=== PATIENT | male | born 1955 | race African-American/Black ===

== ENCOUNTER 2016-04-05 13:54 | Observation (INO) ==
--- NOTE | 2016-04-05 14:41 | EKG Report ---
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
[2016-04-05] MEDS ORDERED: ASPIRIN 325 MG TABLET PO STA (14:50)
[2016-04-05] MEDS ORDERED: ENOXAPARIN 100 MG/ML SYRINGE SUBCUT STA (14:50)
[2016-04-05] MEDS ORDERED: NITROGLYCERIN 2% OINT 1 INCH/GM PACK TOP STA (15:05)
[2016-04-05] MEDS ORDERED: ASPIRIN 325 MG TABLET ONE (15:35)
[2016-04-05] MEDS ORDERED: niCARdipine 25 MG/10 ML VIAL IV ONE (15:35)
[2016-04-05] MEDS ORDERED: NITROGLYCERIN 2% OINT 1 INCH/GM PACK TOP ONE (15:35)
[2016-04-05] MEDS ORDERED: ENOXAPARIN 80 MG/0.8 ML SYRINGE SUBCUT ONE (15:35)
[2016-04-05 15:38] LABS: Albumin 3.7 G/DL (3.4-5.0); Bilirubin,Total 0.4 MG/DL (0.2-1.0); Calcium 8.4 MG/DL (8.5-10.1); Magnesium 2.6 MG/DL (1.8-2.4); Osmolality,Calculated 288.8 MOS/KG (273-304); Potassium 4.3 MMOL/L (3.5-5.1); Total Protein 6.9 G/DL (6.4-8.3)
--- NOTE | 2016-04-05 15:40 | XRay Report ---
XR chest 1V portable Indication: Chest pain Comparison: Chest x-ray dated December 16, 2014 Technique: Single frontal view of the chest Findings: Cardiomediastinal silhouette is stable in configuration. No focal consolidation, pleural effusion, or pneumothorax. Osseous and surrounding soft tissue structures demonstrate no acute abnormality. IMPRESSION: No acute cardiopulmonary process demonstrated. PROCEDURE INTERPRETED AT [facility] DEPARTMENT OF RADIOLOGY Final Report Signed by: Dr Jeremias Dodson
[2016-04-05] MEDS: niCARdipine INJ 25 MG in SODIUM CHLORIDE 0.9% 240 ML IV SCH ×2 (15:50→21:46)
[2016-04-05 16:10] LABS: Basophils % 0.9 % (0.0-0.8); Eosinophils # 0.2 10*3/uL (0.0-0.87); Eosinophils % 3.5 % (0.00-10.9); Hematocrit 39.7 VOL% (42.0-52.0); Hemoglobin 12.4 GM/DL (14.0-18.0); Lymphocytes # 2.4 10*3/uL (1.4-4.0); Lymphocytes % 55.4 % (21.2-54.2); Mean Corpuscular HGB Conc 31.2 GM/DL (32-36); Mean Corpuscular Hemoglobin 27 PG (27-34); Mean Corpuscular Volume 85.2 FL (87-102); Mean Platelet Volume 12.8 FL (9.6-12.0); Monocytes # 0.3 10*3/uL (0.11-0.8); Neutrophils # 1.4 10*3/uL (1.4-7.4); Neutrophils % 32.2 % (38.7-73.9); Platelet Count 170 10*3/uL (130-400); Red Blood Count 4.66 10*6/uL (3.8-5.5); Red Cell Distribution Width 13.8 % (9.3-17.3); White Blood Count 4.3 10*3/uL (4.5-13.71)
[2016-04-05 16:29] LABS: Apearance,Urine CLEAR (Clear); Bacteria,Urine Occasional /HPF (Few); Bilirubin,Urine Negative (Negative); Blood, Urine Negative (Negative); Glucose,Urine (UA) Negative (Negative); Ketones,Urine Negative (Negative); Mucus,Urine Occasional /LPF (Occasional); Nitrite,Urine Negative (Negative); Protein,Urine Negative; Urine Color Yellow (Yellow); Urine Specific Gravity 1.019 (1.001-1.035); Urine Urobilinogen < 2.0 EU/DL (0.2-1.0); WBC,Urine <1 /HPF (0-6)
[2016-04-05] MEDS ORDERED: MAGNESIUM SULF RIDER 2 GM in PREMIX 1 EACH IV PRN ×2 (16:49→17:58)
[2016-04-05] MEDS ORDERED: MAGNESIUM SULF RIDER 4 GM in PREMIX 1 EACH IV PRN ×2 (16:49→17:58)
[2016-04-05 16:50] LABS: Eosinophils 2 % (0-10); Lymphocytes 63 % (20-55); Myelocytes 2 %; Platelet Estimate Adequate; Segmented Neutrophils 30 % (50-85); Total Cells Counted 100
--- NOTE | 2016-04-05 17:48 | Emergency Department Note ---
Harpreet Daniels Meredith, am scribing for, and in the presence of, Parker Waters MD 14:44. Evelin Daniels Phillip K, MD, personally performed the services described in this documentation, ascribed by Diane Mullins in my presence, and it is both accurate and complete [id number] . Arrival - Arrival Chief Complaint: Chest Pain Stated Complaint: HIGH BLOOD PRESSURE ED Nursing Triage Note: reports pain in left side of chest that started about 0845 this am. was seen at [facility] and told to come here to see dr jackson. denies n/v diaphoresis or sob Mode of Arrival: Ambulatory Limitations: No Limitations Source: Patient, Family, Old Records Reviewed, RN Notes Reviewed - History of Present Illness HPI Narrative: Pt is a 60 y/o black male reporting to the ED with c/o non-radiating left-sided chest pressure which onset at approximately 0845 this morning while at rest. He was seen at the [facility] and was told to come here to see Dr. Jackson. Pt confirms some blurred vision but denies any associated nausea, vomiting, diaphoresis, shortness of breath, cough, or fever. At the time of triage his blood pressure was 172/90 and his heart rate was 41 bpm. Family member states his blood pressure has been elevated for the past 6 days. Pt has a treadmill last year per Dr. Jackson which was normal. He has a history of HTN. Pt is a current everyday smoker. Onset (ago): hour(s) Quality: other (pressure) Allergies/Adverse Reactions: Allergies Allergy/AdvReac Type Severity Reaction Status Date / Time No Known Drug Allergies Allergy Verified 12/16/14 11:14 Home Medications: Home Medications Medication Instructions Recorded Confirmed Type Losartan [Cozaar] 50 mg PO BID #60 tablet 12/17/14 04/05/16 Rx Review of System - Review of System 12 point system: reviewed and no additional remarkable complaints except as stated - Review of System Constitutional: Present: as per HPI. Absent: diaphoresis, fever Respiratory: Present: as per HPI, other (denies SOB). Absent: cough Cardiovascular: Present: as per HPI, chest pain, other (hypertension and bradycardia) Gastrointestinal: Present: as per HPI. Absent: nausea, vomiting Medical,Surgical,& Family Hx - Medical History Cardio: History of: Hypertension - Surgical History Orthopedic Surgeries: Surgical HX of;: Orthopedic Surgery (ORIF of both legs) - Family History Family History: Reports;: Family Cancer, Family Heart Disease, Family Hypertension, Family Stroke Denies;: Family Psychiatric Problems - Social History Smoking Status: Current every day smoker Exam Vital Signs: Vital Signs Temperature 97.1 F L 04/05/16 15:22 Pulse Rate 41 L 04/05/16 15:22 Respiratory Rate 19 04/05/16 15:22 Blood Pressure 172/90 04/05/16 15:22 O2 Sat by Pulse Oximetry 100 04/05/16 15:00 - General General appearance: alert, in no apparent distress - Head Head exam: Present: atraumatic, normocephalic - Eye Eye exam: Present: normal appearance, PERRL, EOMI - ENT ENT exam: Present: mucous membranes moist, normal external ear exam - Neck Neck exam: Present: full ROM, trachea midline. Absent: tenderness, meningismus , lymphadenopathy, thyromegaly - Chest Chest inspection: Present: symmetric chest wall rise. Absent: tenderness, rash - Respiratory Respiratory exam: Present: normal lung sounds bilaterally. Absent: respiratory distress - Cardiovascular Cardiovascular exam: Present: normal rhythm, bradycardia. Absent: murmur, rubs , gallop - Abdominal Exam Abdominal exam: Present: soft, normal bowel sounds. Absent: distention, tenderness - Extremities Exam Extremities exam: Present: full ROM, normal capillary refill. Absent: tenderness, pedal edema, calf tenderness - Back Exam Back exam: Present: full ROM. Absent: tenderness - Neurological Exam Neurological exam: Present: alert, oriented X3, CN II-XII intact. Absent: motor sensory deficit - Psychiatric Psychiatric exam: Present: normal affect, normal mood - Skin Skin exam: Present: warm, dry, intact, normal color Results - Labs CBC & BMP: 04/05/16 14:41 04/05/16 14:41 Lab Results: I have reviewed the patients labs Labs: Laboratory Tests 04/05/16 04/05/16 14:41 14:41 Sodium 144 Potassium 4.3 Chloride 110 H Carbon Dioxide 28 BUN 21 H Creatinine 1.40 H Calcium 8.4 L Magnesium 2.6 H ALT 14 L Troponin I 0.047 H Laboratory Tests 04/05/16 14:41 WBC 4.3 L RBC 4.66 Hgb 12.4 L Hct 39.7 L MCV 85.2 L MCHC 31.2 L Plt Count 170 MPV 12.8 H Neut % (Auto) 32.2 L Lymph % (Auto) 55.4 H Baso % (Auto) 0.9 H Laboratory Tests 04/05/16 14:41 Urine pH 6.0 Ur Specific [place] 1.019 Urine Urobilinogen < 2.0 H Urine WBC <1 Urine Bacteria Occasional Urine Mucus Occasional - EKG EKG results: interpreted by ERMD (sinus bradycardia with inferior ST-T changes) - Diagnostic Findings Procedure: Chest x-ray: report reviewed by me (No acute cardiopulmonary process demonstrated. ) Disposition Clinical Impression: Chest pain, Hypertensive crisis, Bradycardia Case discussed with: patient Disposition: Still a Patient Condition: Guarded
[2016-04-05] MEDS ORDERED: DOCUSATE SODIUM 100 MG CAPSULE PO PRN (17:58)
[2016-04-05] MEDS ORDERED: ONDANSETRON 4 MG/2 ML VIAL IV PRN (17:58)
[2016-04-05] MEDS ORDERED: ACETAMINOPHEN 325 MG TABLET PO PRN (17:58)
[2016-04-05] MEDS ORDERED: ENOXAPARIN 40 MG/0.4 ML SYRINGE SUBCUT SCH (18:00)
[2016-04-05 18:24] LABS: Barbiturates Screen,Urine Negative (Negative); Benzodiazepines Screen,Urine Negative (Negative); Cannabinoid Screen,Urine Positive (Negative); Opiate Screen,Urine Negative (Negative); Phencyclidine Screen,Urine Negative (Negative)
[2016-04-05] MEDS ORDERED: FUROSEMIDE 40 MG/4 ML VIAL IV ONE (18:27)
--- NOTE | 2016-04-05 18:27 | Cardiology History & Physical ---
Assessment and Plan (1) Hypertensive emergency Status: Acute Assessment and plan: 60-year-old black male, history of hypertension, presenting with hypertensive emergency, NSTEMI, likely due to demand ischemia. Sinus bradycardia, not symptomatic. He is feeling better, with medical management. -Continue aspirin, add Crestor 20 mg daily at bedtime. -Echo in a.m. -Trend troponins. So far, this seems to be a type II ischemic event and can pursue ischemic evaluation, when he is stable. -Keep on telemetry. -Resume Cozaar. Follow creatinine -Cathetered beta jennifer due to baseline bradycardia. -PPI Current Visit: Yes (2) Chest pain Status: Acute Current Visit: Yes (3) Bradycardia Status: Acute Current Visit: Yes History of Present Illness Chief complaint: HTN History of present illness: Mr. Fisher is a 60 year old BM, followed by Dr. Jackson. He has a history of hypertension. Today, while going to work, he developed retroocular pressure, then headache and chest pain, which lasted for approximately half an hour. This was mild. He came to the emergency room for evaluation. The blood pressure was 220, he was started on Cardizem drip, which provided good blood pressure relief. He is currently pain-free and he is feeling normal. He denies any lower extremity swelling, orthopnea or nocturnal symptoms. He also noticed swelling of his left knee recently, history of remote orthopedic surgery. There is no history of gout. He is compliant with his medications. There were no significant ischemic changes on the EKG. Chest x-ray was unremarkable. Initial troponin was borderline. He was in sinus bradycardia at 55 bpm. Mild CKD, creatinine at baseline. 1.5. Home Medications Medication Instructions Recorded Confirmed Type Losartan [Cozaar] 50 mg PO BID #60 tablet 12/17/14 04/05/16 Rx Allergies Allergy/AdvReac Type Severity Reaction Status Date / Time No Known Drug Allergies Allergy Verified 12/16/14 11:14 12 point system: reviewed and no additional remarkable complaints except as stated Medical,Surgical,& Family Hx - Medical History Cardio: History of: Hypertension - Surgical History Orthopedic Surgeries: Surgical HX of;: Orthopedic Surgery (ORIF of both legs) - Family History Family History: Reports;: Family Cancer, Family Heart Disease, Family Hypertension, Family Stroke Denies;: Family Psychiatric Problems - Social History Smoking Status: Current every day smoker Cardiology Physical Exam - Constitutional Vitals: Vital Signs Temp Pulse Resp BP Pulse Ox 97.1 F L 49 L 13 131/81 100 04/05/16 15:22 04/05/16 18:02 04/05/16 18:02 04/05/16 18:02 04/05/16 18:02 General appearance: normal weight - Head Head exam: Present: normal inspection - Eye Eye exam: Absent: conjunctival injection Pupils: Absent: constricted - ENT ENT exam: Present: normal exam - Neck Neck exam: Present: normal inspection. Absent: thyromegaly - Respiratory Respiratory exam: Present: decreased breath sounds - Cardiovascular Cardiovascular exam: Present: bradycardia, systolic murmur - GI/Abdominal GI/Abdominal exam: Present: normal bowel sounds - Extremities Exam Extremities exam: Present: normal inspection, normal capillary refill. Absent: edema - Back Exam Back exam: Present: normal inspection - Neurological Exam Neurological exam: Present: alert, oriented X3 - Psychiatric Psychiatric exam: Present: normal affect, normal mood - Skin Skin exam: Present: normal color, warm. Absent: cyanosis Result/EKG - Labs CBC & BMP: 04/05/16 14:41 04/05/16 14:41 Lab Results: I have reviewed the past 24 hour labs - EKG EKG results: interpreted by me
[2016-04-05] MEDS ORDERED: ROSUVASTATIN 20 MG TABLET PO SCH (21:00)
[2016-04-05] MEDS: LOSARTAN 50 MG TABLET PO SCH (21:38)
[2016-04-06 04:17] LABS: Basophils # 0.1 10*3/uL (0.0-0.2); Basophils % 1.1 % (0.0-0.8); Eosinophils # 0.1 10*3/uL (0.0-0.87); Hematocrit 40.4 VOL% (42.0-52.0); Immature Granulocytes % 0.2 %; Immature Granulocytes Absolute 0.01 #; Lymphocytes # 2.3 10*3/uL (1.4-4.0); Lymphocytes % 48.3 % (21.2-54.2); Mean Corpuscular HGB Conc 32.2 GM/DL (32-36); Mean Corpuscular Hemoglobin 28 PG (27-34); Mean Corpuscular Volume 85.6 FL (87-102); Mean Platelet Volume 12.3 FL (9.6-12.0); Monocytes # 0.6 10*3/uL (0.11-0.8); Monocytes % 13.3 % (1.7-12.7); Neutrophils # 1.6 10*3/uL (1.4-7.4); Neutrophils % 34.1 % (38.7-73.9); Platelet Count 178 10*3/uL (130-400); Red Blood Count 4.72 10*6/uL (3.8-5.5); Red Cell Distribution Width 13.5 % (9.3-17.3); White Blood Count 4.7 10*3/uL (4.5-13.71)
[2016-04-06 05:02] LABS: Albumin 3.7 G/DL (3.4-5.0); Bilirubin,Total 0.8 MG/DL (0.2-1.0); Calcium 8.5 MG/DL (8.5-10.1); Magnesium 2.7 MG/DL (1.8-2.4); Osmolality,Calculated 290.7 MOS/KG (273-304); Risk Ratio 3.04; Thyroid Stimulating Hormone 4.16 uIU/ml (0.358-3.74); Total Protein 6.8 G/DL (6.4-8.3); VLDL CHOLESTEROL 17.8 MG/DL
[2016-04-06 05:32] LABS: Hypochromasia Slight
[2016-04-06 05:33] LABS: Platelet Estimate Adequate
--- NOTE | 2016-04-06 06:05 | EKG Report ---
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 : 1955 Requested by: Parker Bain Order Number: [id number] Reading MD: NEIL ALDRICH Intervals [place] Rate: 50 P: 251 [place]: 118 QRS: -39 QRSD: 97 T: -60 QT: 446 QTc: 418 Interpretive Statements JUNCTIONAL BRADYCARDIA MARKED LEFT AXIS DEVIATION POSSIBLE RIGHT VENTRICULAR CONDUCTION DELAY MINIMAL VOLTAGE CRITERIA FOR LVH, CONSIDER NORMAL VARIANT ST DEVIATION AND MODERATE T-WAVE ABNORMALITY, CONSIDER LATERAL ISCHEMIA ST DEVIATION AND MODERATE T-WAVE ABNORMALITY, CONSIDER INFERIOR ISCHEMIA Electronically Signed On 04-06-16 13:27:34 SQL DATABASE ADMINISTRATOR by NEIL ALDRICH [email or web address]
--- NOTE | 2016-04-06 07:32 | EKG Report ---
Stationary ECG Study [facility] Test Date: 04/06/2016 7:30:37 AM Pat Name: NAILA LEMA Department: Room: 115 Gender: M Bell Clerk: YO : 1955 Requested by: Pepe Rocha Order Number: [id number] Reading MD: NEIL ALDRICH Intervals [place] Rate: 43 P: 999 AR: 0 QRS: 73 QRSD: 93 T: -56 QT: 459 QTc: 405 Interpretive Statements ATRIAL FIBRILLATION WITH SLOW VENTRICULAR RESPONSE POSSIBLE RIGHT VENTRICULAR CONDUCTION DELAY VOLTAGE CRITERIA FOR LVH POSSIBLE SEPTAL MYOCARDIAL INFARCTION, PROBABLY OLD MODERATE T-WAVE ABNORMALITY, CONSIDER INFERIOR ISCHEMIA Electronically Signed On 04-06-16 13:31:27 PLASTICATOR by NEIL ALDRICH [email or web address]
[2016-04-06] MEDS ORDERED: PANTOPRAZOLE 40 MG TABLET PO SCH (09:00)
[2016-04-06] MEDS ORDERED: ASPIRIN EC 81 MG TABLET PO SCH (09:00)
[2016-04-06] MEDS: LOSARTAN 50 MG TABLET PO SCH (09:35)
[2016-04-06 15:46] VITALS: BP 188/88
[2016-04-06] MEDS ORDERED: amLODIPine 5 MG TABLET PO SCH ×3 (16:30→18:06)
--- NOTE | 2016-04-06 17:22 | Discharge Summary ---
<Dilan Cortesnie E - Last Filed: 04/06/16 17:16> Hospital Course - Hospital Course Hospital Course: This is an incomplete DC summary draft - please complete at discharge. Mr. Fisher is a 60 year old BM, followed by Dr. Jackson. He has a history of hypertension. Patient presented to the emergency department after experiencing retro-ocular pressure, headache and chest pain. All of these symptoms lasted approximately half an hour. Upon admission to the ER his systolic blood pressure was noted be to 220 and he was started on Cardizem drip appropriately. This provided good relief. With control of his blood pressure is chest pain was relieved. There were no ischemic changes on his EKG. His troponin was marginal at 0.047. It did not trend up and in fact stayed 0.046. And his cardiac biomarkers were negative. Mild CKD, creatinine at baseline. 1.5 and remained stable through hospital stay. Specialty Discharge - Follow Up or Referrals Discharge Plan - Discharge Medications New Aspirin EC Tab 81 mg PO DAILY #90 tablet Furosemide Tab [Lasix Tab] 20 mg PO DAILY #90 tablet Rosuvastatin [Crestor] 20 mg PO BEDTIME #90 tablet amLODIPine [Norvasc] 5 mg PO DAILY #90 tablet Continue Losartan [Cozaar] 50 mg PO BID #60 tablet - Follow Up or Referral - Forms/Instructions Instructions: Myocardial Infarction (GEN), Cigarette Smoking and Your Health ( GEN), Chronic Hypertension (GEN) Exam - Constitutional Vitals: Period Temp Pulse Resp BP Sys/Sherman Pulse Ox Last 24 Hr 97.2 F-98.1 F 38-60 9-23 98-188/59-97 Discharge Results Procedures and tests throughout hospitalization: Pending Orders 04/06/16 08:18 MRSA Surveillence, Inf Control Routine Labs on day of discharge: Labs from last 24 hours 04/06/16 04/06/16 04/06/16 03:39 03:39 03:39 WBC RBC Hgb Hct MCV MCH MCHC RDW Plt Count MPV Neut % (Auto) Lymph % (Auto) [place] % (Auto) Eos % (Auto) Baso % (Auto) Neut # (Auto) Lymph # (Auto) [place] # (Auto) Eos # (Auto) Baso # (Auto) Immature Gran % Nucleated RBC % Immature Gran # Nucleated RBCs # Platelet Estimate Hypochromasia Sodium 145 Potassium 4.0 Chloride 107 Carbon Dioxide 31 Anion Gap 11.0 BUN 22 H Creatinine 1.40 H GFR Calculation 72 BUN/Creatinine Ratio 15.00 Glucose 99 Calculated Osmolality 290.7 Calcium 8.5 Magnesium 2.7 H Total Bilirubin 0.80 AST 10 ALT 13 L Alkaline Phosphatase 84 Troponin I B-Natriuretic Peptide 68 Total Protein 6.8 Albumin 3.7 Globulin 3.1 Albumin/Globulin Ratio 1.1 Triglycerides 89 Cholesterol 173 LDL Cholesterol 94.0 VLDL Cholesterol 17.8 HDL Cholesterol 57 Heart Disease Risk Ratio 3.04 Free T4 1.13 TSH 3rd Generation 4.160 H 04/06/16 04/05/16 04/05/16 03:39 22:06 18:39 WBC 4.7 RBC 4.72 Hgb 13.0 L Hct 40.4 L MCV 85.6 L MCH 28 MCHC 32.2 RDW 13.5 Plt Count 178 MPV 12.3 H Neut % (Auto) 34.1 L Lymph % (Auto) 48.3 [place] % (Auto) 13.3 H Eos % (Auto) 3.0 Baso % (Auto) 1.1 H Neut # (Auto) 1.6 Lymph # (Auto) 2.3 [place] # (Auto) 0.6 Eos # (Auto) 0.1 Baso # (Auto) 0.1 Immature Gran % 0.2 Nucleated RBC % 0.0 Immature Gran # 0.01 Nucleated RBCs # 0.00 Platelet Estimate Adequate Hypochromasia Slight Sodium Potassium Chloride Carbon Dioxide Anion Gap BUN Creatinine GFR Calculation BUN/Creatinine Ratio Glucose Calculated Osmolality Calcium Magnesium Total Bilirubin AST ALT Alkaline Phosphatase Troponin I 0.046 H 0.046 H B-Natriuretic Peptide Total Protein Albumin Globulin Albumin/Globulin Ratio Triglycerides Cholesterol LDL Cholesterol VLDL Cholesterol HDL Cholesterol Heart Disease Risk Ratio Free T4 TSH 3rd Generation DS: Provider Date of admission: 04/05/16 16:47 Primary care physician: . No PCP Attending physician on admission: Pepe Rocha MD Consults: 04/05/16 16:52 Consult to Pharmacy [CONS] Routine Reason for Pharmacy Consult: Adjust Meds Renal Funct 04/05/16 17:58 Consult to Cardiac Rehabilitation [CONS] Routine Reason for Cardiac Rehabilitation: Risk Factor Modification Discharging clinician: Lisa Cortes NP <Pepe Rocha - Last Filed: 04/06/16 18:13> Hospital Course - Hospital Course Hospital Course: 60y BM, followed by dr. Jackson. He was admitted with HTN emergeny, demand ischemia. Symptoms resolved with cardene drip. Remained bradycardiac throughout the hospital stay, SR 30-40 bpm. Not symptomatic. Echo - severe LVH with norm pulm pressure. -HTN heart disease, LVH- cont Cozaar, added amlodipine, lasix -demand ischemia - ASA, statin. will not use BB due to baseline bradycardia -yanet - not symptomatic so far -Secondary HTN screen: he denies DELIA symptoms. TSH borderline high, with normal FT4. -CKD - mild, stable. Cont ARB -FU with dr. Jackson in 2 weeks with BMP/Mg Diagnosis - Discharge Diagnosis (1) Hypertensive emergency Status: Acute (2) Chest pain Status: Acute (3) Bradycardia Status: Acute DS: Provider Expected date of discharge: 04/06/16
--- NOTE | 2016-04-06 17:55 | ECHO Report ---
Hunter Fisher Exam Date: 04/06/2016 08:54 Referring Physician: Technologist: Kaylie White RDCS Age: 60 Ht (in): Wt (lb): Gender: M Exam Location: [facility] Echo Indications: Essential (primary) hypertension, Chest pain, unspecified, Bradycardia, unspecified, Cardiac murmur, unspecified, Non-ST elevation (NSTEMI) myocardial infarction, Nicotine dependence, unspecified, uncomplicated BP: / HR: Rhythm: Sinus Technical Quality: IMPRESSIONS Normal left ventricular cavity size. Severe concentric hypertrophy (1.7 cm). Left ventricular ejection fraction is estimated at 60 %. No outflow tract obstruction. Moderate biatrial enlargement. MEASUREMENTS (Male / Female) Normal Values 2D ECHO LV Diastolic Diameter PLAX 4.4 cm 4.2 - 5.9 / 3.9 - 5.3 cm LV Systolic Diameter PLAX 2.5 cm LV Fractional Shortening PLAX 44.2 % IVS Diastolic Thickness 1.7 cm 0.6 - 1.0 / 0.6 - 0.9 cm LVPW Diastolic Thickness 1.8 cm 0.6 - 1.0 / 0.6 - 0.9 cm RV Internal Dim ED PLAX 2.3 cm Aortic Root Diameter 4.0 cm LA Systolic Diameter LX 4.2 cm 3.0 - 4.0 / 2.7 - 3.8 cm DOPPLER TR Peak Velocity 239.0 cm/s TR Peak Gradient 22.8 mmHg FINDINGS Left Ventricle Normal left ventricular cavity size. Severe conventric hypertrophy (1.7 cm). Left ventricular ejection fraction is estimated at 60 %. No outflow tract obstruction. Insufficient data to estimate diastolic function. Right Ventricle The right ventricle is normal in size and function. Right Atrium The right atrium is moderetely enlarged. Left Atrium The left atrium is moderately enlarged. Mitral Valve Morphologically normal mitral valve. Trace mitral valve regurgitation. Aortic Valve Morphologically normal aortic valve without significant sclerosis or stenosis. There is no aortic regurgitation. Tricuspid Valve Morphologically normal tricuspid valve. Mild tricuspid valve regurgitation. Tricuspid regurgitation velocities suggest a PAP of 23 mmHg + Ra pressure. Pulmonic Valve Morphologically normal pulmonic valve. Trace pulmonary valve regurgitation. Pericardium Normal pericardium without effusion. Aorta Normal ascending aorta dimension. Pepe Rocha (Electronically Signed) Final Date: 06 April 2016 17:54
[2016-04-06] MEDS ORDERED: ENOXAPARIN 40 MG/0.4 ML SYRINGE SUBCUT SCH (18:00)
[2016-04-07] MEDS ORDERED: FUROSEMIDE 20 MG TABLET PO SCH (09:00)
== END 2016-04-06 19:43 | disposition home or self-care (01) ==
LOC: N.ED 13:54 → N.EDINP 13:54 → N.ICU 17:59 → N.TELES 04-06 14:02
PROVIDERS: ADMIT Internal Medicine Clinical Cardiac Electrophysiology; ATTEND Internal Medicine Clinical Cardiac Electrophysiology

== ENCOUNTER 2022-05-15 14:04 | Inpatient (IN) ==
[2022-05-15] MEDS ORDERED: DIPH/TET/ACEL PERT BOOSTER VACCINE 0.5 ML VIAL IM ONE (17:56)
[2022-05-15 18:54] LABS: Basophils % 0.3 % (0.0-0.8); Eosinophils % 0.2 % (0.00-10.9); Hematocrit 46.8 VOL% (42.0-52.0); Hemoglobin 14.9 GM/DL (14.0-18.0); Immature Granulocytes % 0.4 %; Immature Granulocytes Absolute 0.05 #; Lymphocytes # 1.7 10*3/uL (1.4-4.0); Lymphocytes % 13.9 % (21.2-54.2); Mean Corpuscular HGB Conc 31.8 GM/DL (32-36); Mean Corpuscular Volume 86.2 FL (87-102); Mean Platelet Volume 10.9 FL (9.6-12.0); Monocytes # 1.2 10*3/uL (0.11-0.8); Monocytes % 10.1 % (1.7-12.7); Neutrophils % 75.1 % (38.7-73.9); Platelet Count 229 T/CUMM (130-400); Red Blood Count 5.43 MC/CUMM (3.8-5.5); Red Cell Distribution Width 15.4 % (9.3-17.3); White Blood Count 12.11 T/CUMM (4-12)
[2022-05-15 19:17] LABS: Calcium 9.4 MG/DL (8.5-10.1); Osmolality,Calculated 286.4 MOS/KG (273-304); Potassium 4.1 MMOL/L (3.5-5.1)
[2022-05-15 19:53] LABS: Platelet Estimate Normal
[2022-05-15] MEDS: SODIUM CHLORIDE 0.9% 1,000 ML IV SCH (20:21)
[2022-05-15] MEDS ORDERED: ENOXAPARIN 40 MG/0.4 ML SYRINGE SUBCUT SCH (21:00)
[2022-05-15] MEDS: PIPERACILLIN/TAZOBACTAM 3,375 MG in SODIUM CHLORIDE 0.9% 100 ML IV SCH (21:14)
[2022-05-15] MEDS ORDERED: hydrALAZINE 20 MG/1 ML VIAL IV PRN (21:42)
[2022-05-15] MEDS ORDERED: MORPHINE 2 MG/1 ML SYRINGE IV PRN (21:42)
[2022-05-15] MEDS ORDERED: DILTIAZEM 50 MG/10 ML VIAL IV STA (22:01)
[2022-05-15] MEDS ORDERED: DILTIAZEM 100 MG VIAL.ADD IV ONE (22:02)
[2022-05-15] MEDS ORDERED: DILTIAZEM 25 MG/5 ML VIAL IV ONE (22:03)
[2022-05-15] MEDS ORDERED: LABETALOL 20 MG/4 ML SYRINGE IV PRN (22:15)
[2022-05-15] MEDS ORDERED: DILTIAZEM INJ 100 MG in SODIUM CHLORIDE 0.9% 100 ML IV SCH (22:30)
[2022-05-16] MEDS ORDERED: MORPHINE 2 MG/1 ML SYRINGE ONE (02:57)
[2022-05-16 04:58] LABS: Basophils # 0.1 10*3/uL (0.0-0.2); Basophils % 0.5 % (0.0-0.8); Eosinophils # 0.1 10*3/uL (0.0-0.87); Eosinophils % 0.7 % (0.00-10.9); Hematocrit 40.5 VOL% (42.0-52.0); Hemoglobin 13.5 GM/DL (14.0-18.0); Immature Granulocytes % 0.3 %; Immature Granulocytes Absolute 0.03 #; Lymphocytes # 2.2 10*3/uL (1.4-4.0); Lymphocytes % 20.6 % (21.2-54.2); Mean Corpuscular HGB Conc 33.3 GM/DL (32-36); Mean Corpuscular Volume 85.8 FL (87-102); Mean Platelet Volume 11.3 FL (9.6-12.0); Monocytes # 1.2 10*3/uL (0.11-0.8); Monocytes % 11.3 % (1.7-12.7); Neutrophils % 66.6 % (38.7-73.9); Platelet Count 198 T/CUMM (130-400); Red Blood Count 4.72 MC/CUMM (3.8-5.5); Red Cell Distribution Width 15.1 % (9.3-17.3); White Blood Count 10.78 T/CUMM (4-12)
[2022-05-16 05:21] LABS: Albumin 2.7 G/DL (3.4-5.0); Bilirubin,Total 0.8 MG/DL (0.20-1.00); Calcium 8.8 MG/DL (8.5-10.1); Osmolality,Calculated 282.5 MOS/KG (273-304); Potassium 3.5 MMOL/L (3.5-5.1); Total Protein 7.2 G/DL (6.4-8.2)
[2022-05-16] MEDS: PIPERACILLIN/TAZOBACTAM 3,375 MG in SODIUM CHLORIDE 0.9% 100 ML IV SCH ×3 (05:25→21:13)
[2022-05-16] MEDS: SODIUM CHLORIDE 0.9% 1,000 ML IV SCH (06:27)
[2022-05-16] MEDS: ASPIRIN EC 81 MG TABLET PO SCH (08:44)
[2022-05-16 09:30] LABS: % Iron Saturation 13.6 % (18-50)
[2022-05-16 09:32] LABS: 25 Hydroxy Vitamin D Total 13.3 NG/ML (30-100); Folate 10.88 NG/ML (5.38-24.0)
[2022-05-16] MEDS ORDERED: POTASSIUM CHLORIDE 20 MEQ TABLET PO ONE (10:43)
[2022-05-16] MEDS ORDERED: FAMOTIDINE 20 MG/2 ML VIAL IV ONE (11:10)
[2022-05-16] MEDS ORDERED: IPRATROPIUM 500 MCG/2.5 ML NEB RESP TX ONE (11:10)
[2022-05-16] MEDS: amLODIPine 10 MG TABLET PO SCH (11:27)
[2022-05-16] MEDS: METOPROLOL TARTRATE 25 MG TABLET PO SCH ×2 (11:27→21:12)
[2022-05-16] MEDS ORDERED: BUPIVACAINE 0.5% 50 ML VIAL ONE ×2 (12:41→14:26)
[2022-05-16] MEDS ORDERED: LACTATED RINGERS 1,000 ML IV SCH (13:00)
[2022-05-16] MEDS ORDERED: propofoL 200 MG/20 ML VIAL IV ONE (13:49)
[2022-05-16] MEDS ORDERED: LIDOCAINE 2% 5 ML VIAL ONE (13:49)
[2022-05-16] MEDS ORDERED: fentaNYL 100 MCG/2 ML VIAL ONE (13:49)
[2022-05-16] MEDS ORDERED: MIDAZOLAM 2 MG/2 ML VIAL ONE (13:52)
[2022-05-16 13:55] LABS: Barbiturates Screen,Urine Negative (Negative); Benzodiazepines Screen,Urine Negative (Negative); Cannabinoid Screen,Urine Positive (Negative); Opiate Screen,Urine Positive (Negative); Phencyclidine Screen,Urine Negative (Negative)
[2022-05-16] MEDS ORDERED: SEVOFLURANE 1 UNIT/15 MINUTE INH ONE (15:20)
[2022-05-16] MEDS ORDERED: PHENYLEPHRINE 1 MG/10 ML SYRINGE IV ONE (15:20)
[2022-05-16] MEDS: LACTATED RINGERS 1,000 ML IV SCH (16:00)
[2022-05-16] MEDS: FERROUS SULFATE 325 MG TABLET PO SCH (21:12)
[2022-05-17] MEDS: LACTATED RINGERS 1,000 ML IV SCH (01:55)
[2022-05-17 04:18] LABS: Basophils % 0.4 % (0.0-0.8); Eosinophils # 0.1 10*3/uL (0.0-0.87); Eosinophils % 0.7 % (0.00-10.9); Hematocrit 35.6 VOL% (42.0-52.0); Hemoglobin 11.9 GM/DL (14.0-18.0); Immature Granulocytes % 0.2 %; Immature Granulocytes Absolute 0.02 #; Lymphocytes # 1.8 10*3/uL (1.4-4.0); Lymphocytes % 22.5 % (21.2-54.2); Mean Corpuscular HGB Conc 33.4 GM/DL (32-36); Mean Platelet Volume 11.1 FL (9.6-12.0); Monocytes # 1.1 10*3/uL (0.11-0.8); Monocytes % 13.5 % (1.7-12.7); Neutrophils % 62.7 % (38.7-73.9); Platelet Count 174 T/CUMM (130-400); Red Blood Count 4.14 MC/CUMM (3.8-5.5); Red Cell Distribution Width 14.9 % (9.3-17.3); White Blood Count 8.12 T/CUMM (4-12)
[2022-05-17 04:44] LABS: Calcium 8.1 MG/DL (8.5-10.1); Osmolality,Calculated 279.5 MOS/KG (273-304); Potassium 3.8 MMOL/L (3.5-5.1)
[2022-05-17 04:47] LABS: Risk Ratio 2.93; VLDL Cholesterol 14.8 MG/DL
[2022-05-17] MEDS: PIPERACILLIN/TAZOBACTAM 3,375 MG in SODIUM CHLORIDE 0.9% 100 ML IV SCH ×3 (05:39→20:32)
[2022-05-17] MEDS ORDERED: POTASSIUM CHLORIDE 20 MEQ TABLET PO ONE (07:28)
[2022-05-17] MEDS: amLODIPine 10 MG TABLET PO SCH (08:29)
[2022-05-17] MEDS: ENOXAPARIN 80 MG/0.8 ML SYRINGE SUBCUT SCH ×2 (08:29→20:34)
[2022-05-17] MEDS: CHOLECALCIFEROL 5,000 UNIT TABLET PO SCH (08:29)
[2022-05-17] MEDS: FERROUS SULFATE 325 MG TABLET PO SCH ×2 (08:29→20:34)
[2022-05-17] MEDS: ASPIRIN EC 81 MG TABLET PO SCH (08:29)
[2022-05-17] MEDS ORDERED: CLOPIDOGREL 75 MG TABLET PO SCH (09:00)
[2022-05-17] MEDS ORDERED: METOPROLOL TARTRATE 50 MG TABLET PO SCH (09:00)
[2022-05-17] MEDS: VANCOMYCIN INJ 1,000 MG in SODIUM CHLORIDE 0.9% 250 ML IV SCH (14:02)
[2022-05-18] MEDS: VANCOMYCIN INJ 1,000 MG in SODIUM CHLORIDE 0.9% 250 ML IV SCH ×2 (02:17→14:05)
[2022-05-18 04:17] LABS: Basophils % 0.7 % (0.0-0.8); Eosinophils # 0.2 10*3/uL (0.0-0.87); Eosinophils % 2.8 % (0.00-10.9); Hematocrit 35.4 VOL% (42.0-52.0); Hemoglobin 11.6 GM/DL (14.0-18.0); Immature Granulocytes % 0.3 %; Immature Granulocytes Absolute 0.02 #; Lymphocytes % 34.6 % (21.2-54.2); Mean Corpuscular HGB Conc 32.8 GM/DL (32-36); Mean Corpuscular Volume 86.3 FL (87-102); Mean Platelet Volume 11.3 FL (9.6-12.0); Monocytes # 0.7 10*3/uL (0.11-0.8); Monocytes % 12.6 % (1.7-12.7); Platelet Count 175 T/CUMM (130-400); Red Cell Distribution Width 14.7 % (9.3-17.3); White Blood Count 5.81 T/CUMM (4-12)
[2022-05-18] MEDS: PIPERACILLIN/TAZOBACTAM 3,375 MG in SODIUM CHLORIDE 0.9% 100 ML IV SCH ×3 (04:18→20:05)
[2022-05-18 04:36] LABS: Calcium 8.1 MG/DL (8.5-10.1); Osmolality,Calculated 284.1 MOS/KG (273-304); Potassium 4.1 MMOL/L (3.5-5.1)
[2022-05-18 04:36] LABS: Calcium 8.4 MG/DL (8.5-10.1); Osmolality,Calculated 276.7 MOS/KG (273-304); Potassium 3.9 MMOL/L (3.5-5.1)
[2022-05-18] MEDS ORDERED: LOSARTAN 25 MG TABLET PO SCH (09:00)
[2022-05-18] MEDS: ASPIRIN EC 81 MG TABLET PO SCH (09:15)
[2022-05-18] MEDS: FERROUS SULFATE 325 MG TABLET PO SCH ×2 (09:16→20:04)
[2022-05-18] MEDS: CHOLECALCIFEROL 5,000 UNIT TABLET PO SCH (09:16)
[2022-05-18] MEDS: amLODIPine 10 MG TABLET PO SCH (09:16)
[2022-05-18] MEDS: METOPROLOL TARTRATE 25 MG TABLET PO SCH ×2 (09:17→20:04)
[2022-05-18] MEDS: ENOXAPARIN 80 MG/0.8 ML SYRINGE SUBCUT SCH ×2 (09:20→20:05)
[2022-05-18 22:05] LABS: Barbiturates Screen,Urine Negative (Negative); Benzodiazepines Screen,Urine Negative (Negative); Cannabinoid Screen,Urine Positive (Negative); Opiate Screen,Urine Positive (Negative); Phencyclidine Screen,Urine Negative (Negative)
[2022-05-19] MEDS: VANCOMYCIN INJ 1,000 MG in SODIUM CHLORIDE 0.9% 250 ML IV SCH ×2 (01:56→18:35)
[2022-05-19 04:51] LABS: Basophils # 0.1 10*3/uL (0.0-0.2); Basophils % 1.1 % (0.0-0.8); Eosinophils # 0.2 10*3/uL (0.0-0.87); Eosinophils % 4.2 % (0.00-10.9); Hematocrit 32.8 VOL% (42.0-52.0); Hemoglobin 10.3 GM/DL (14.0-18.0); Immature Granulocytes % 0.4 %; Immature Granulocytes Absolute 0.02 #; Lymphocytes # 1.9 10*3/uL (1.4-4.0); Lymphocytes % 40.6 % (21.2-54.2); Mean Corpuscular HGB Conc 31.4 GM/DL (32-36); Mean Corpuscular Volume 88.6 FL (87-102); Mean Platelet Volume 10.6 FL (9.6-12.0); Monocytes # 0.7 10*3/uL (0.11-0.8); Monocytes % 14.5 % (1.7-12.7); Neutrophils % 39.2 % (38.7-73.9); Platelet Count 177 T/CUMM (130-400); Red Cell Distribution Width 14.6 % (9.3-17.3); White Blood Count 4.75 T/CUMM (4-12)
[2022-05-19 05:09] LABS: Calcium 8.4 MG/DL (8.5-10.1); Osmolality,Calculated 277.5 MOS/KG (273-304); Potassium 3.9 MMOL/L (3.5-5.1)
[2022-05-19] MEDS: PIPERACILLIN/TAZOBACTAM 3,375 MG in SODIUM CHLORIDE 0.9% 100 ML IV SCH ×3 (05:38→21:12)
[2022-05-19] MEDS: CHOLECALCIFEROL 5,000 UNIT TABLET PO SCH (09:34)
[2022-05-19] MEDS: METOPROLOL TARTRATE 25 MG TABLET PO SCH ×2 (09:34→21:13)
[2022-05-19] MEDS: ENOXAPARIN 80 MG/0.8 ML SYRINGE SUBCUT SCH ×2 (09:35→21:13)
[2022-05-19] MEDS: FERROUS SULFATE 325 MG TABLET PO SCH ×2 (09:35→21:13)
[2022-05-19] MEDS: ASPIRIN EC 81 MG TABLET PO SCH (09:35)
[2022-05-19] MEDS: amLODIPine 10 MG TABLET PO SCH (09:35)
[2022-05-20] MEDS: VANCOMYCIN INJ 1,000 MG in SODIUM CHLORIDE 0.9% 250 ML IV SCH ×3 (01:18→16:00)
[2022-05-20] MEDS: PIPERACILLIN/TAZOBACTAM 3,375 MG in SODIUM CHLORIDE 0.9% 100 ML IV SCH ×3 (04:14→21:48)
[2022-05-20 06:00] LABS: Basophils # 0.1 10*3/uL (0.0-0.2); Basophils % 1.3 % (0.0-0.8); Eosinophils # 0.2 10*3/uL (0.0-0.87); Eosinophils % 4.7 % (0.00-10.9); Hematocrit 40.6 VOL% (42.0-52.0); Hemoglobin 13.3 GM/DL (14.0-18.0); Immature Granulocytes % 0.2 %; Immature Granulocytes Absolute 0.01 #; Lymphocytes # 2.2 10*3/uL (1.4-4.0); Lymphocytes % 48.2 % (21.2-54.2); Mean Corpuscular HGB Conc 32.8 GM/DL (32-36); Mean Corpuscular Volume 85.5 FL (87-102); Mean Platelet Volume 10.7 FL (9.6-12.0); Monocytes # 0.5 10*3/uL (0.11-0.8); Monocytes % 10.7 % (1.7-12.7); Neutrophils % 34.9 % (38.7-73.9); Platelet Count 234 T/CUMM (130-400); Red Blood Count 4.75 MC/CUMM (3.8-5.5); Red Cell Distribution Width 14.3 % (9.3-17.3)
[2022-05-20 06:21] LABS: Eosinophils 7 % (0-10); Lymphocytes 45 % (20-55); Platelet Estimate Adequate; Total Cells Counted 100
[2022-05-20 06:24] LABS: Calcium 9.6 MG/DL (8.5-10.1); Osmolality,Calculated 281.1 MOS/KG (273-304); Potassium 3.8 MMOL/L (3.5-5.1)
[2022-05-20] MEDS: CHOLECALCIFEROL 5,000 UNIT TABLET PO SCH (09:47)
[2022-05-20] MEDS: FERROUS SULFATE 325 MG TABLET PO SCH ×2 (09:47→21:48)
[2022-05-20] MEDS: ASPIRIN EC 81 MG TABLET PO SCH (09:47)
[2022-05-20] MEDS: amLODIPine 10 MG TABLET PO SCH (09:47)
[2022-05-20] MEDS: ENOXAPARIN 80 MG/0.8 ML SYRINGE SUBCUT SCH ×2 (09:48→21:49)
[2022-05-20] MEDS: METOPROLOL TARTRATE 25 MG TABLET PO SCH ×2 (09:52→22:46)
[2022-05-20] MEDS: LOSARTAN 50 MG TABLET PO SCH (13:13)
[2022-05-21] MEDS: PIPERACILLIN/TAZOBACTAM 3,375 MG in SODIUM CHLORIDE 0.9% 100 ML IV SCH (05:02)
[2022-05-21 06:43] LABS: Basophils # 0.1 10*3/uL (0.0-0.2); Basophils % 1.7 % (0.0-0.8); Eosinophils # 0.2 10*3/uL (0.0-0.87); Eosinophils % 4.4 % (0.00-10.9); Hematocrit 39.3 VOL% (42.0-52.0); Hemoglobin 12.7 GM/DL (14.0-18.0); Immature Granulocytes % 0.2 %; Immature Granulocytes Absolute 0.01 #; Lymphocytes # 2.1 10*3/uL (1.4-4.0); Lymphocytes % 51.8 % (21.2-54.2); Mean Corpuscular HGB Conc 32.3 GM/DL (32-36); Mean Corpuscular Volume 86.2 FL (87-102); Mean Platelet Volume 10.9 FL (9.6-12.0); Monocytes # 0.4 10*3/uL (0.11-0.8); Monocytes % 9.7 % (1.7-12.7); Neutrophils % 32.2 % (38.7-73.9); Platelet Count 252 T/CUMM (130-400); Red Blood Count 4.56 MC/CUMM (3.8-5.5); Red Cell Distribution Width 14.5 % (9.3-17.3); White Blood Count 4.13 T/CUMM (4-12)
[2022-05-21 07:16] LABS: Calcium 9.1 MG/DL (8.5-10.1); Eosinophils 6 % (0-10); Hypochromia Slight; Lymphocytes 55 % (20-55); Microcytosis Slight; Osmolality,Calculated 282.3 MOS/KG (273-304); Platelet Estimate Adequate; Potassium 4.2 MMOL/L (3.5-5.1); Total Cells Counted 100
[2022-05-21] MEDS: METOPROLOL TARTRATE 25 MG TABLET PO SCH (08:21)
[2022-05-21] MEDS: ASPIRIN EC 81 MG TABLET PO SCH (08:21)
[2022-05-21] MEDS: FERROUS SULFATE 325 MG TABLET PO SCH (08:21)
[2022-05-21] MEDS: CHOLECALCIFEROL 5,000 UNIT TABLET PO SCH (08:21)
[2022-05-21] MEDS: amLODIPine 10 MG TABLET PO SCH (08:21)
[2022-05-21] MEDS: LOSARTAN 50 MG TABLET PO SCH (08:21)
[2022-05-21] MEDS: ENOXAPARIN 80 MG/0.8 ML SYRINGE SUBCUT SCH (08:28)
[2022-05-21] MEDS ORDERED: metroNIDAZOLE 500 MG TABLET PO SCH (12:00)
[2022-05-21 15:37] VITALS: BP 154/92
[2022-05-21] MEDS ORDERED: LINEZOLID 600 MG TABLET PO SCH (17:00)
== END 2022-05-21 15:35 | disposition home or self-care (01) | DRG 513 ==
LOC: N.ED 14:04 → SUATTDRO 21:40 → N.TELEN 21:40 → N.3E 05-18 13:48
PROVIDERS: ADMIT Internal Medicine; ATTEND Internal Medicine